=== PATIENT | female | born 1970 | race African-American/Black ===

== ENCOUNTER 2019-08-05 09:04 | Outpatient (CLI) | payer BC, SELFPAY ==
--- NOTE | ~2019-08-05 | US_ITS ---
EXAMINATION: US pelvic complete w TV EXAM DATE: 08/05/2019 10:04 INDICATION: Chronic vaginal bleeding. TECHNIQUE: Pelvic transabdominal and transvaginal sonogram was performed. There are multiple graysca le and Doppler images available for interpretation. There is no prior study for comparison. FINDINGS: Uterus measures 10.4 x 6.5 x 5.8 cm, and is morphologically normal. Endometrial stripe me asures 23 mm, abnormally thickened. There is no free pelvic fluid. Right adnexa: The ovary measures 7.2 x 7.6 x 3.9 cm, with 2 cystic, larger measuring up to 6 cm. Coul d be hemorrhagic cysts, endometrioma, cystic ovarian neoplasm follow-up is indicated. Ovarian vascula r flow confirmed. Left adnexa: The ovary is not identified. There is no adnexal mass. IMPRESSION: 1. Thickened endometrium at 23 mm; recommend histologic correlation. 2. Right ovary with cystic lesions; recommend 6 week follow-up pelvic sonogram. Reviewed, dictated and finalized at location A. IMPRESSION: 1. Thickened endometrium at 23 mm; recommend histologic correlation. 2. Right ovary with cystic lesions; recommend 6 week follow-up pelvic sonogram .
== END 2019-08-05 09:05 | disposition home or self-care (01) ==
LOC: ANHIMG 09:07
PROVIDERS: Visit Provider Obstetrics & Gynecology
DX: R10.9 Unspecified abdominal pain (principal); R93.89 Abnormal findings on diagnostic imaging of other specified body structures; N83.201 Unspecified ovarian cyst, right side
CPT/HCPCS: 76830; 76856

== ENCOUNTER 2019-08-12 12:01 | Outpatient (CLI) | payer BC, SELFPAY ==
[2019-08-12 13:12] LABS: Thyroid Stimulating Hormone 0.919 uIU/mL (0.465-4.680)
[2019-08-12 14:00] LABS: Free T4 Free Thyroxine 1.22 ng/mL (0.78-2.19)
[2019-08-14 02:22] LABS: CA-125 17 U/mL (<35)
[2019-08-14 04:18] LABS: FSH 9.6 mIU/mL (***)
== END 2019-08-12 12:02 | disposition home or self-care (01) ==
PROVIDERS: Visit Provider Obstetrics & Gynecology
DX: N93.9 Abnormal uterine and vaginal bleeding, unspecified (principal)
CPT/HCPCS: 36415; 83001; 84439; 84443; 86304